=== PATIENT | male | born 2000 | race African-American/Black ===

== ENCOUNTER 2020-01-26 16:35 | Emergency (ER) | payer OTHER | END 2020-01-26 17:30 | disposition home or self-care (01) | LOC: ERS 16:35 | DX: M26.622 Arthralgia of left temporomandibular joint (principal); E10.9 Type 1 diabetes mellitus without complications | CPT/HCPCS: 99283 ==

== ENCOUNTER 2023-01-26 22:59 | Inpatient (IN) | payer OTHER ==
[2023-01-27 01:54] LABS: Actual Bicarbonate (HCO3v) 26.6 mEq/L (22-28); Base Excess -1.1 mEq/L (-2.0 to +3.0); Calcium, Ionized (venous) 1.21 mmol/L (1.16-1.32); Chloride (VBG) 100 mmol/L (98-106); Hematocrit-VBG 50 % (42.0-52.0); pH (venous) 7.301 (7.32-7.43)
[2023-01-27 01:59] LABS: #Eosinphils 0.1 thou/uL (0.0-0.7); #Monocytes 0.6 thou/uL (0.11-0.59); #Neutrophils 2.4 thou/uL (1.40-6.50); %Basophils 0.6 % (0.0-1.0); %Eosinophils 1.1 % (0.0-10.0); %Lymphocytes 50.6 % (21.0-51.0); %Monocytes 8.8 % (0.0-10.0); %Neutrophils 38.6 % (42.0-75.0); Hematocrit 47.1 % (42.0-52.0); Hemoglobin 16.2 g/dL (14.0-18.0); Mean Corpuscular HGB CONC 34.4 g/dL (32.0-36.0); Mean Corpuscular Hemoglobin 25.2 pg (27.0-31.0); Mean Corpuscular Volume 73.1 fl (78.0-98.0); Mean Platelet Volume 8.7 fL (7.4-10.4); Platelet Count 277 10x3/uL (130-400); RBC Distribution Width 12.6 % (11.5-14.5); Red Blood Cell (RBC) Count 6.44 mill/uL (4.70-6.10); White Blood Cell (WBC) Count 6.3 10x3/uL (4.8-10.8)
[2023-01-27 02:23] LABS: CellaVision Operator ID lab.abc; Platelet Adequacy Comment Platelets Normal; Vacuoles SLIGHT
[2023-01-27 02:28] LABS: ALT (SGPT) 13 U/L (8-55); AST (SGOT) 13 U/L (5-34); Albumin 4.3 g/dL (3.5-5.0); Alkaline Phosphatase 111 U/L (40-110); Anion Gap 11 mmol/L (10-20); BUN (Urea Nitrogen) 8 mg/dL (8.9-20.6); Bilirubin, Total 0.4 mg/dL (0.2-1.2); CK (CPK) 35 U/L (30-200); Calc. Creatinine Clearance 0 mL/min (70-130); Calcium 9.6 mg/dL (7.8-10.44); Carbon Dioxide 29 mmol/L (22-29); Chloride 101 mmol/L (98-107); Estimated GFR 119; Globulin 3.2 g/dL (2.4-3.5); Glucose 200 mg/dL (70-105); Potassium 3.4 mmol/L (3.5-5.1); Protein, Total 7.5 g/dL (6.0-8.3); Sodium 138 mmol/L (136-145)
[2023-01-27] MEDS ORDERED: Ketorolac Tromethamine 30 MG/ML VIAL ONE (03:06)
[2023-01-27] MEDS ORDERED: diphenhydrAMINE 50 MG/ML VIAL ONE (04:12)
[2023-01-27] MEDS ORDERED: Dexameth. Sod Phosp. 10 MG/ML (CHEMO USE ONLY) ONE (04:12)
[2023-01-27] MEDS ORDERED: Ondansetron ODT 4 MG TAB PO PRN (08:54)
[2023-01-27] MEDS ORDERED: Dextrose 5% in Water 1,000 ML IV PRN (08:54)
[2023-01-27] MEDS ORDERED: Acetaminophen 650 MG Suppository PR PRN (08:54)
[2023-01-27] MEDS ORDERED: Ondansetron PF 4 MG/2 ML Vial IVP PRN (08:54)
[2023-01-27] MEDS ORDERED: HumaLOG 300 UNITS/3 ML VIAL SC PRN (08:54)
[2023-01-27] MEDS ORDERED: Glucagon 1 MG/ML KIT IM PRN (08:54)
[2023-01-27] MEDS ORDERED: Calcium Carbonate 500 MG ChewTAB PO PRN (08:54)
[2023-01-27] MEDS ORDERED: Acetaminophen 325 MG TAB PO PRN (08:54)
[2023-01-27] MEDS ORDERED: Dextrose 50% Abboject 50 ML SYRINGE SLOW IVP PRN (08:54)
[2023-01-27] MEDS ORDERED: Gabapentin 300 MG CAP PO PRN (09:14)
[2023-01-27] MEDS ORDERED: Gabapentin 300 MG CAP PO SCH (09:15)
[2023-01-27 09:31] LABS: Hemoglobin A1c 10.8 % (4.0-6.0)
[2023-01-27 10:13] VITALS: BMI 22.4
[2023-01-27] MEDS: Lactated Ringer's 1,000 ML IV SCH ×2 (10:46→20:45)
[2023-01-27 11:15] LABS: Amphetamine Not Detected (NotDetected); Barbiturates Screen Not Detected (NotDetected); Benzodiazepine Screen Not Detected (NotDetected); Cocaine Metabolite Screen Not Detected (NotDetected); Methadone Not Detected (NotDetected); Methamphetamine Not Detected (NotDetected); Opiate Screen Not Detected (NotDetected); Oxycodone Screen Not Detected (NotDetected); Phencyclidine (PCP) Not Detected (NotDetected); THC/Cannabinoid Screen Detected (NotDetected); Tricyclic Screen Not Detected (NotDetected)
[2023-01-27] MEDS: Acetaminophen 325 MG TAB PO SCH ×2 (11:48→19:25)
[2023-01-27] MEDS: HumaLOG 300 UNITS/3 ML VIAL SC PRN (13:59)
[2023-01-27] MEDS: Melatonin 3 MG TAB PO SCH (20:41)
[2023-01-27] MEDS ORDERED: Insulin Glargine 30 UNITS/0.3 ML VIAL SC SCH ×2 (21:00)
[2023-01-28] MEDS: Acetaminophen 325 MG TAB PO SCH ×5 (00:10→23:55)
[2023-01-28] MEDS ORDERED: Gabapentin 300 MG CAP PO SCH (00:15)
[2023-01-28] MEDS ORDERED: diphenhydrAMINE 25 MG CAP PO SCH (01:06)
[2023-01-28] MEDS ORDERED: hydrALAZINE 20 MG/ML VIAL SLOW IVP SCH (03:15)
[2023-01-28 04:48] LABS: #Eosinphils 0.1 thou/uL (0.0-0.7); #Monocytes 0.7 thou/uL (0.11-0.59); #Neutrophils 4.1 thou/uL (1.40-6.50); %Basophils 0.3 % (0.0-1.0); %Eosinophils 0.5 % (0.0-10.0); %Lymphocytes 46.8 % (21.0-51.0); %Monocytes 7.7 % (0.0-10.0); %Neutrophils 44.6 % (42.0-75.0); Hematocrit 41.7 % (42.0-52.0); Hemoglobin 14.1 g/dL (14.0-18.0); Mean Corpuscular HGB CONC 33.8 g/dL (32.0-36.0); Mean Corpuscular Hemoglobin 24.9 pg (27.0-31.0); Mean Corpuscular Volume 73.7 fl (78.0-98.0); Mean Platelet Volume 8.7 fL (7.4-10.4); Platelet Count 235 10x3/uL (130-400); RBC Distribution Width 12.4 % (11.5-14.5); Red Blood Cell (RBC) Count 5.66 mill/uL (4.70-6.10); White Blood Cell (WBC) Count 9.1 10x3/uL (4.8-10.8)
[2023-01-28 05:10] LABS: Delete Auto Diff?? NO
[2023-01-28 05:55] LABS: Platelet Adequacy Comment Platelets Normal
[2023-01-28 07:35] LABS: Chloride 105 mmol/L (98-107); Potassium 3.2 mmol/L (3.5-5.1); Sodium 138 mmol/L (136-145)
[2023-01-28 07:36] LABS: Glucose 185 mg/dL (70-105)
[2023-01-28 07:38] LABS: Anion Gap 11 mmol/L (10-20); Carbon Dioxide 25 mmol/L (22-29)
[2023-01-28 07:39] LABS: Calc. Creatinine Clearance 136 mL/min (70-130); Estimated GFR 125
[2023-01-28 07:40] LABS: BUN (Urea Nitrogen) 8 mg/dL (8.9-20.6)
[2023-01-28] MEDS: Gabapentin 300 MG CAP PO SCH ×3 (08:38→21:35)
[2023-01-28] MEDS: Polyethylene Glycol 3350 17 GM Packet PO SCH (08:39)
[2023-01-28] MEDS ORDERED: Potassium Chloride 20 MEQ TAB PO SCH (08:45)
[2023-01-28 08:50] LABS: Burr Cells SLIGHT = 2-5 cells HPF (0-1); CellaVision Operator ID LAB.GE; Microcytosis SLIGHT = 6-15 cells HPF (0-5); Polychromasia SLIGHT = 2-3 cells HPF (0-2)
[2023-01-28] MEDS ORDERED: Insulin Glargine 30 UNITS/0.3 ML VIAL SC SCH ×2 (09:00→10:00)
[2023-01-28] MEDS ORDERED: Losartan 25 MG TAB PO SCH (10:00)
[2023-01-28 16:26] LABS: SARS-CoV-2 NAA Rapid Test Not Detected (NotDetected)
[2023-01-28] MEDS ORDERED: Metoprolol Tartrate 25 MG TAB PO SCH (16:30)
[2023-01-28 17:12] LABS: Troponin I Less than 0.010 ng/mL (< 0.028)
[2023-01-28] MEDS: HumaLOG 300 UNITS/3 ML VIAL SC PRN (17:57)
[2023-01-28 19:04] LABS: Anion Gap 11 mmol/L (10-20); BUN (Urea Nitrogen) 7 mg/dL (8.9-20.6); Calc. Creatinine Clearance 120 mL/min (70-130); Calcium 9.2 mg/dL (7.8-10.44); Carbon Dioxide 27 mmol/L (22-29); Chloride 103 mmol/L (98-107); Estimated GFR 115; Glucose 202 mg/dL (70-105); Potassium 4.4 mmol/L (3.5-5.1); Sodium 137 mmol/L (136-145)
[2023-01-28] MEDS: Melatonin 3 MG TAB PO SCH (21:31)
[2023-01-28] MEDS: Ibuprofen 600 MG TAB PO PRN (22:21)
[2023-01-29] MEDS ORDERED: Metoprolol Tartrate 25 MG TAB PO SCH ×2 (00:45→09:00)
[2023-01-29] MEDS ORDERED: Losartan 25 MG TAB PO SCH ×4 (04:00→09:00)
[2023-01-29] MEDS: Acetaminophen 325 MG TAB PO SCH ×2 (05:35→12:30)
[2023-01-29] MEDS: Ibuprofen 600 MG TAB PO PRN ×3 (05:37→21:14)
[2023-01-29] MEDS: Polyethylene Glycol 3350 17 GM Packet PO SCH (08:04)
[2023-01-29] MEDS: Gabapentin 300 MG CAP PO SCH ×3 (08:06→21:10)
[2023-01-29] MEDS ORDERED: Insulin Glargine 30 UNITS/0.3 ML VIAL SC SCH (09:00)
[2023-01-29 09:29] LABS: Anion Gap 11 mmol/L (10-20); BUN (Urea Nitrogen) 7 mg/dL (8.9-20.6); Calc. Creatinine Clearance 139 mL/min (70-130); Calcium 9.5 mg/dL (7.8-10.44); Carbon Dioxide 29 mmol/L (22-29); Chloride 101 mmol/L (98-107); Estimated GFR 126; Glucose 108 mg/dL (70-105); Potassium 3.9 mmol/L (3.5-5.1); Sodium 137 mmol/L (136-145)
[2023-01-29] MEDS: Metoprolol Tartrate 25 MG TAB PO SCH (21:10)
[2023-01-29] MEDS: Acetaminophen 500 MG TAB PO SCH (21:14)
[2023-01-29] MEDS: Melatonin 3 MG TAB PO SCH (21:15)
[2023-01-30] MEDS: Acetaminophen 500 MG TAB PO SCH ×5 (05:26→23:51)
[2023-01-30 08:50] LABS: Anion Gap 12 mmol/L (10-20); BUN (Urea Nitrogen) 9 mg/dL (8.9-20.6); Calc. Creatinine Clearance 130 mL/min (70-130); Calcium 9.9 mg/dL (7.8-10.44); Carbon Dioxide 29 mmol/L (22-29); Chloride 102 mmol/L (98-107); Estimated GFR 123; Glucose 87 mg/dL (70-105); Potassium 3.7 mmol/L (3.5-5.1); Sodium 139 mmol/L (136-145)
[2023-01-30] MEDS: Gabapentin 300 MG CAP PO SCH ×3 (09:11→21:24)
[2023-01-30] MEDS: Insulin Glargine 30 UNITS/0.3 ML VIAL SC SCH (09:12)
[2023-01-30] MEDS: Polyethylene Glycol 3350 17 GM Packet PO SCH (09:13)
[2023-01-30] MEDS: Metoprolol Tartrate 25 MG TAB PO SCH ×2 (09:13→21:25)
[2023-01-30] MEDS: Losartan 25 MG TAB PO SCH (09:13)
[2023-01-30] MEDS: HumaLOG 300 UNITS/3 ML VIAL SC PRN (17:37)
[2023-01-30] MEDS: Ibuprofen 600 MG TAB PO SCH ×2 (17:38→23:51)
[2023-01-30] MEDS ORDERED: DULoxetine 30 MG CAP PO SCH (17:45)
[2023-01-30] MEDS: diphenhydrAMINE 25 MG CAP PO PRN (18:05)
[2023-01-30] MEDS: Melatonin 3 MG TAB PO SCH (21:25)
[2023-01-31] MEDS ORDERED: Metoprolol Tartrate 25 MG TAB PO SCH (00:48)
[2023-01-31] MEDS: diphenhydrAMINE 25 MG CAP PO PRN (01:39)
[2023-01-31] MEDS: Ibuprofen 600 MG TAB PO SCH ×2 (05:57→14:03)
[2023-01-31] MEDS: Acetaminophen 500 MG TAB PO SCH ×2 (05:58→14:02)
[2023-01-31] MEDS ORDERED: Metoprolol Tartrate 50 MG TAB PO SCH (09:00)
[2023-01-31] MEDS ORDERED: DULoxetine 30 MG CAP PO SCH (09:00)
[2023-01-31] MEDS: Polyethylene Glycol 3350 17 GM Packet PO SCH (09:02)
[2023-01-31] MEDS: Insulin Glargine 30 UNITS/0.3 ML VIAL SC SCH (09:02)
[2023-01-31] MEDS: Gabapentin 300 MG CAP PO SCH ×2 (09:02→15:49)
[2023-01-31] MEDS: Losartan 25 MG TAB PO SCH (09:03)
[2023-01-31 16:52] VITALS: BP 130/91; TEMP 98.4
== END 2023-01-31 16:50 | disposition home or self-care (01) | DRG 74 ==
LOC: ERS 22:59 → 2SW 01-27 07:47 → OBSVTOIN 01-28 16:55
PROVIDERS: ADMIT Student in an Organized Health Care Education/Training Program; ATTEND Student in an Organized Health Care Education/Training Program
DX: E10.40 Type 1 diabetes mellitus with diabetic neuropathy, unspecified (principal); K59.00 Constipation, unspecified; R00.0 Tachycardia, unspecified; E87.6 Hypokalemia; I10 Essential (primary) hypertension; Z79.899 Other long term (current) drug therapy; Z79.4 Long term (current) use of insulin; Z82.49 Family history of ischemic heart disease and other diseases of the circulatory system
CPT/HCPCS: 36415; 36416; 74178; 80048; 80053; 80306; 80307; 82010; 82550; 82607; 82805; 83036; 83605; 83835; 84443; 84484; 85025; 86038; 86140; 86225; 93005; 93010; 93306; 96361; 96374; 96375; G0378; J1100; J1200; J1815; J1885; J7120

== ENCOUNTER 2023-07-20 22:58 | Emergency (ER) | payer OTHER ==
[2023-07-20] MEDS ORDERED: Haloperidol Lactate 5 MG/ML VIAL ONE (23:19)
[2023-07-20] MEDS ORDERED: Lidocaine 2% Viscous 10 mL, Alum & Magn 30 mL SSW SCH (23:45)
== END 2023-07-21 00:16 | disposition home or self-care (01) ==
LOC: ERS 22:58
DX: R11.2 Nausea with vomiting, unspecified (principal); E10.9 Type 1 diabetes mellitus without complications; D36.9 Benign neoplasm, unspecified site
CPT/HCPCS: 36416; 96361; 96374; J1630

== ENCOUNTER 2023-07-22 22:41 | Inpatient (IN) | payer OTHER, MEDICAID ==
[2023-07-22 23:07] LABS: Actual Bicarbonate (HCO3v) 26.5 mEq/L (22-28); Base Excess 2.1 mEq/L (-2.0 to +3.0); Calcium, Ionized (venous) 1.12 mmol/L (1.16-1.32); Chloride (VBG) 95 mmol/L (98-106); Hematocrit-VBG 52 % (42.0-52.0); Hemoglobin (Hb) 17.8 g/dL (13.2-17.3); Potassium (VBG) 3.53 mmol/L (3.70-5.30); Sodium 141 mmol/L (133-146); pH (venous) 7.433 (7.32-7.43)
[2023-07-22] MEDS ORDERED: Ondansetron PF 4 MG/2 ML Vial ONE (23:11)
[2023-07-22 23:22] LABS: #Monocytes 0.5 thou/uL (0.11-0.59); #Neutrophils 4.5 thou/uL (1.40-6.50); %Basophils 0.4 % (0.0-1.0); %Eosinophils 0.3 % (0.0-10.0); %Lymphocytes 25.4 % (21.0-51.0); %Monocytes 6.7 % (0.0-10.0); %Neutrophils 67.1 % (42.0-75.0); Hematocrit 49.4 % (42.0-52.0); Hemoglobin 17.3 g/dL (14.0-18.0); Mean Corpuscular Hemoglobin 25.3 pg (27.0-31.0); Mean Corpuscular Volume 72.2 fl (78.0-98.0); Mean Platelet Volume 9.5 fL (7.4-10.4); Platelet Count 248 10x3/uL (130-400); RBC Distribution Width 12.4 % (11.5-14.5); Red Blood Cell (RBC) Count 6.84 mill/uL (4.70-6.10); White Blood Cell (WBC) Count 6.7 10x3/uL (4.8-10.8)
[2023-07-22 23:42] LABS: ALT (SGPT) 21 U/L (8-55); AST (SGOT) 22 U/L (5-34); Albumin 4.8 g/dL (3.5-5.0); Alkaline Phosphatase 134 U/L (40-110); Anion Gap 21 mmol/L (10-20); BUN (Urea Nitrogen) 17 mg/dL (8.9-20.6); Bilirubin, Total 1.5 mg/dL (0.2-1.2); Calc. Creatinine Clearance 0 mL/min (70-130); Calcium 9.8 mg/dL (7.8-10.44); Carbon Dioxide 26 mmol/L (22-29); Chloride 96 mmol/L (98-107); Estimated GFR 75; Globulin 3.3 g/dL (2.4-3.5); Glucose 263 mg/dL (70-105); Lipase 18 U/L (8-78); Potassium 3.6 mmol/L (3.5-5.1); Protein, Total 8.1 g/dL (6.0-8.3); Sodium 139 mmol/L (136-145)
[2023-07-22 23:45] LABS: CellaVision Operator ID lab.sh2; Microcytosis SLIGHT = 6-15 cells HPF (0-5); Platelet Adequacy Comment Platelets Normal; Tear Drops SLIGHT = 2-5 cells HPF (0-1)
[2023-07-23 00:23] LABS: Influenza A by NAA Not Detected (NotDetected); Influenza B by NAA Not Detected (NotDetected); SARS-CoV-2 NAA Rapid Test Not Detected (NotDetected)
[2023-07-23 01:34] LABS: Bacteria/HPF None Seen HPF (None Seen); Bilirubin Negative (Negative); Blood, Urine Negative (Negative); CAUTI Indications for Culture Pelvic or flank pain; Clarity Clear (Clear); Glucose, Urine (Dipstick) Greater than 1000 mg/dL (Negative); Ketone, Urine 100 mg/dL (Negative); Leukocyte Negative Leu/uL (Negative); Nitrite Negative (Negative); Protein, Urine (Dipstick) Negative (Neg-Trace); RBC/HPF 0-3 HPF (0-3); Specific Gravity, Urine 1.014 (1.002-1.036); Squamous Epithelial None Seen HPF (0-3); Urobilinogen Normal mg/dL (Less than 2); WBC/HPF 0-3 HPF (0-3); pH, Urine 6.5 (5.0-9.0)
[2023-07-23 01:35] LABS: Urine Culture Reflex No No
[2023-07-23] MEDS ORDERED: Ondansetron PF 4 MG/2 ML Vial IVP PRN ×2 (02:15→03:20)
[2023-07-23] MEDS ORDERED: Ondansetron ODT 4 MG TAB SL PRN (02:15)
[2023-07-23 02:21] LABS: Lactic Acid 1.4 mmol/L (0.5-2.2)
[2023-07-23 02:54] LABS: Actual Bicarbonate (HCO3a) 21.1 mEq/L (22-28); Analyzer IN Cardio ER; Base Excess (BEa) -3.5 mEq/L (-2.0 to +3.0); Calcium, Ionized (arterial) 1.08 mmol/L (1.12-1.30); Carboxyhemoglobin (COHb) 0.7 gm% (0.0-3.0); Hematocrit-ABG 47 % (42.0-52.0); Hemoglobin (Hb) 16.1 g/dL (14.0-18.0); O2 Tension (PaO2), arterial 86.6 mmHg (80.0-100.0); Potassium - ABG Lab 3.81 mmol/L (3.70-5.30); pH, Arterial 7.373 (7.35-7.45)
[2023-07-23 02:58] LABS: Puncture Site RRA
[2023-07-23] MEDS ORDERED: Electrolyte Replacement Protocol 1 EACH IVPB PRN (03:11)
[2023-07-23] MEDS ORDERED: Dextrose 5 %-0.45 % NaCl 1,000 ML IV PRN (03:11)
[2023-07-23] MEDS ORDERED: NS 0.9% w/ 20 MEQ KCL 1,000 ML IV PRN ×2 (03:11)
[2023-07-23] MEDS ORDERED: Sodium Chloride 0.9% 1,000 ML IV PRN ×4 (03:11)
[2023-07-23] MEDS ORDERED: Dextrose 50% Abboject 50 ML SYRINGE SLOW IVP PRN (03:11)
[2023-07-23] MEDS ORDERED: Labetalol HCl 100 MG/20 ML VIAL SLOW IVP PRN (03:14)
[2023-07-23] MEDS ORDERED: HUMULIN R 100 UNITS in Sodium Chloride 0.9% 100 ML IVPB SCH (03:15)
[2023-07-23] MEDS ORDERED: Insulin Regular 300 UNITS/3 ML VIAL ONE (03:56)
[2023-07-23] MEDS ORDERED: INSULIN REGULAR IN 0.9 % NACL 100 UNITS/100 ML BAG ONE (03:56)
[2023-07-23] MEDS ORDERED: NS 0.9% w/ 20 MEQ KCL 1,000 ML ONE (03:59)
[2023-07-23 04:01] LABS: Anion Gap 21 mmol/L (10-20); BUN (Urea Nitrogen) 14 mg/dL (8.9-20.6); Calc. Creatinine Clearance 0 mL/min (70-130); Calcium 8.2 mg/dL (7.8-10.44); Carbon Dioxide 19 mmol/L (22-29); Chloride 105 mmol/L (98-107); Estimated GFR 96; Glucose 238 mg/dL (70-105); Potassium 3.8 mmol/L (3.5-5.1); Sodium 141 mmol/L (136-145)
[2023-07-23 04:02] LABS: #Monocytes 0.4 thou/uL (0.11-0.59); #Neutrophils 9.6 thou/uL (1.40-6.50); %Basophils 0.2 % (0.0-1.0); %Lymphocytes 7.9 % (21.0-51.0); %Monocytes 3.7 % (0.0-10.0); %Neutrophils 87.9 % (42.0-75.0); Hematocrit 47.5 % (42.0-52.0); Hemoglobin 16.2 g/dL (14.0-18.0); Mean Corpuscular HGB CONC 34.1 g/dL (32.0-36.0); Mean Corpuscular Volume 73.4 fl (78.0-98.0); Mean Platelet Volume 9.2 fL (7.4-10.4); Platelet Count 235 10x3/uL (130-400); RBC Distribution Width 12.2 % (11.5-14.5); Red Blood Cell (RBC) Count 6.47 mill/uL (4.70-6.10); White Blood Cell (WBC) Count 10.9 10x3/uL (4.8-10.8)
[2023-07-23 04:16] LABS: Anion Gap 18 mmol/L (10-20); BUN (Urea Nitrogen) 14 mg/dL (8.9-20.6); Calc. Creatinine Clearance 0 mL/min (70-130); Calcium 8.7 mg/dL (7.8-10.44); Carbon Dioxide 21 mmol/L (22-29); Chloride 104 mmol/L (98-107); Estimated GFR 108; Glucose 234 mg/dL (70-105); Sodium 139 mmol/L (136-145)
[2023-07-23] MEDS: Losartan 25 MG TAB PO SCH ×2 (05:10→09:15)
[2023-07-23] MEDS: D5 1/2 NS w/20 mEq KCL 1,000 ML IV PRN (05:10)
[2023-07-23] MEDS: Sodium Chloride 0.9% 1,000 ML IV SCH (05:11)
[2023-07-23 05:19] LABS: Magnesium 1.9 mg/dL (1.6-2.6)
[2023-07-23] MEDS: Ondansetron PF 4 MG/2 ML Vial IVP SCH (06:13)
[2023-07-23 07:30] LABS: Anion Gap 17 mmol/L (10-20); BUN (Urea Nitrogen) 12 mg/dL (8.9-20.6); Calc. Creatinine Clearance 124 mL/min (70-130); Calcium 8.5 mg/dL (7.8-10.44); Carbon Dioxide 22 mmol/L (22-29); Chloride 107 mmol/L (98-107); Estimated GFR 102; Glucose 167 mg/dL (70-105); Potassium 3.7 mmol/L (3.5-5.1); Sodium 142 mmol/L (136-145)
[2023-07-23 07:30] LABS: Acetaminophen Less than 10 mcg/mL (10.0-30.0); Alcohol Less than 10.0 mg/dL (Less than 10); Salicylate Less than 8.0 mg/dL (15.0-30.0)
[2023-07-23 07:31] LABS: ALT (SGPT) 19 U/L (8-55); AST (SGOT) 20 U/L (5-34); Albumin 4.2 g/dL (3.5-5.0); Alkaline Phosphatase 118 U/L (40-110); Bilirubin, Direct 0.4 mg/dL (0.1-0.3); Bilirubin, Total 0.9 mg/dL (0.2-1.2); Protein, Total 7.4 g/dL (6.0-8.3)
[2023-07-23 07:54] LABS: Amphetamine Not Detected (NotDetected); Barbiturates Screen Not Detected (NotDetected); Benzodiazepine Screen Not Detected (NotDetected); Cocaine Metabolite Screen Not Detected (NotDetected); Methadone Not Detected (NotDetected); Methamphetamine Not Detected (NotDetected); Opiate Screen Not Detected (NotDetected); Oxycodone Screen Not Detected (NotDetected); Phencyclidine (PCP) Not Detected (NotDetected); THC/Cannabinoid Screen Detected (NotDetected); Tricyclic Screen Not Detected (NotDetected)
[2023-07-23] MEDS: Gabapentin 300 MG CAP PO SCH (09:15)
[2023-07-23] MEDS: Magnesium 2 GM/50 ML(in water) 2 GM in Premix 1 BAG IVPB SCH (09:26)
[2023-07-23 11:41] LABS: ALT (SGPT) 18 U/L (8-55); AST (SGOT) 18 U/L (5-34); Albumin 4.2 g/dL (3.5-5.0); Alkaline Phosphatase 110 U/L (40-110); Bilirubin, Direct 0.4 mg/dL (0.1-0.3); Bilirubin, Total 0.7 mg/dL (0.2-1.2); Protein, Total 7.4 g/dL (6.0-8.3)
[2023-07-23 11:42] LABS: Anion Gap 17 mmol/L (10-20); BUN (Urea Nitrogen) 9 mg/dL (8.9-20.6); Calc. Creatinine Clearance 127 mL/min (70-130); Calcium 8.7 mg/dL (7.8-10.44); Carbon Dioxide 23 mmol/L (22-29); Chloride 106 mmol/L (98-107); Estimated GFR 104; Glucose 189 mg/dL (70-105); Potassium 4.3 mmol/L (3.5-5.1); Sodium 142 mmol/L (136-145)
[2023-07-23 11:43] LABS: Magnesium 2.9 mg/dL (1.6-2.6)
[2023-07-23] MEDS: Promethazine 25 MG TAB PO SCH (13:42)
[2023-07-23 17:21] LABS: Anion Gap 15 mmol/L (10-20); BUN (Urea Nitrogen) 8 mg/dL (8.9-20.6); Calc. Creatinine Clearance 118 mL/min (70-130); Calcium 8.8 mg/dL (7.8-10.44); Carbon Dioxide 21 mmol/L (22-29); Chloride 106 mmol/L (98-107); Estimated GFR 95; Glucose 256 mg/dL (70-105); Magnesium 2.3 mg/dL (1.6-2.6); Sodium 138 mmol/L (136-145)
[2023-07-23] MEDS: Pantoprazole 40 MG VIAL IVP SCH (17:49)
[2023-07-24 06:09] LABS: #Monocytes 1.1 thou/uL (0.11-0.59); #Neutrophils 7.5 thou/uL (1.40-6.50); %Basophils 0.2 % (0.0-1.0); %Eosinophils 0.2 % (0.0-10.0); %Lymphocytes 15.7 % (21.0-51.0); %Monocytes 10.5 % (0.0-10.0); %Neutrophils 72.9 % (42.0-75.0); Hematocrit 45.4 % (42.0-52.0); Hemoglobin 15.6 g/dL (14.0-18.0); Mean Corpuscular HGB CONC 34.4 g/dL (32.0-36.0); Mean Corpuscular Hemoglobin 25.2 pg (27.0-31.0); Mean Corpuscular Volume 73.5 fl (78.0-98.0); Mean Platelet Volume 9.6 fL (7.4-10.4); Platelet Count 220 10x3/uL (130-400); RBC Distribution Width 12.3 % (11.5-14.5); Red Blood Cell (RBC) Count 6.18 mill/uL (4.70-6.10); White Blood Cell (WBC) Count 10.3 10x3/uL (4.8-10.8)
[2023-07-24 06:46] LABS: Anion Gap 12 mmol/L (10-20); BUN (Urea Nitrogen) 4 mg/dL (8.9-20.6); Calc. Creatinine Clearance 155 mL/min (70-130); Calcium 8.9 mg/dL (7.8-10.44); Carbon Dioxide 23 mmol/L (22-29); Chloride 104 mmol/L (98-107); Estimated GFR 123; Glucose 195 mg/dL (70-105); Potassium 3.9 mmol/L (3.5-5.1); Sodium 135 mmol/L (136-145)
[2023-07-24] MEDS ORDERED: Losartan 25 MG TAB PO SCH (09:00)
[2023-07-24] MEDS: Insulin Glargine 30 UNITS/0.3 ML VIAL SC SCH ×2 (09:48→21:57)
[2023-07-24 17:41] LABS: Anion Gap 11 mmol/L (10-20); BUN (Urea Nitrogen) Less than 4 mg/dL (8.9-20.6); Calc. Creatinine Clearance 148 mL/min (70-130); Calcium 9.3 mg/dL (7.8-10.44); Carbon Dioxide 23 mmol/L (22-29); Chloride 103 mmol/L (98-107); Estimated GFR 119; Glucose 213 mg/dL (70-105); Potassium 4.4 mmol/L (3.5-5.1); Sodium 133 mmol/L (136-145)
[2023-07-24] MEDS: Ondansetron PF 4 MG/2 ML Vial ONE (19:05)
[2023-07-24] MEDS: Lorazepam 2 MG/ML VIAL SLOW IVP PRN (22:33)
[2023-07-24] MEDS ORDERED: Glucagon 1 MG/ML KIT IM PRN (23:03)
[2023-07-24] MEDS ORDERED: Dextrose 50% Abboject 50 ML SYRINGE SLOW IVP PRN (23:03)
[2023-07-24] MEDS ORDERED: HumaLOG 300 UNITS/3 ML VIAL SC PRN ×2 (23:03)
[2023-07-24] MEDS ORDERED: Dextrose 5% in Water 1,000 ML IV PRN (23:03)
[2023-07-25 01:10] LABS: Anion Gap 15 mmol/L (10-20); BUN (Urea Nitrogen) 5 mg/dL (8.9-20.6); Calc. Creatinine Clearance 126 mL/min (70-130); Calcium 9.1 mg/dL (7.8-10.44); Carbon Dioxide 19 mmol/L (22-29); Chloride 103 mmol/L (98-107); Estimated GFR 98; Glucose 227 mg/dL (70-105); Potassium 4.4 mmol/L (3.5-5.1); Sodium 133 mmol/L (136-145)
[2023-07-25 04:46] LABS: #Eosinphils 0.1 thou/uL (0.0-0.7); #Monocytes 0.9 thou/uL (0.11-0.59); #Neutrophils 5.8 thou/uL (1.40-6.50); %Basophils 0.3 % (0.0-1.0); %Eosinophils 0.5 % (0.0-10.0); %Lymphocytes 29.4 % (21.0-51.0); %Monocytes 9.6 % (0.0-10.0); %Neutrophils 60.1 % (42.0-75.0); Hemoglobin 15.7 g/dL (14.0-18.0); Mean Corpuscular HGB CONC 34.9 g/dL (32.0-36.0); Mean Corpuscular Hemoglobin 25.4 pg (27.0-31.0); Mean Corpuscular Volume 72.9 fl (78.0-98.0); Mean Platelet Volume 8.8 fL (7.4-10.4); Platelet Count 223 10x3/uL (130-400); RBC Distribution Width 12.1 % (11.5-14.5); Red Blood Cell (RBC) Count 6.17 mill/uL (4.70-6.10); White Blood Cell (WBC) Count 9.6 10x3/uL (4.8-10.8)
[2023-07-25 05:20] LABS: CellaVision Operator ID lab.sh2; Microcytosis SLIGHT = 6-15 cells HPF (0-5); Platelet Adequacy Comment Platelets Normal
[2023-07-25 05:28] LABS: Anion Gap 13 mmol/L (10-20); BUN (Urea Nitrogen) 7 mg/dL (8.9-20.6); Calc. Creatinine Clearance 142 mL/min (70-130); Calcium 9.2 mg/dL (7.8-10.44); Carbon Dioxide 22 mmol/L (22-29); Chloride 104 mmol/L (98-107); Estimated GFR 113; Glucose 209 mg/dL (70-105); Potassium 4.1 mmol/L (3.5-5.1); Sodium 135 mmol/L (136-145)
[2023-07-25] MEDS ORDERED: Ondansetron PF 4 MG/2 ML Vial IVP PRN (08:04)
[2023-07-25] MEDS: Lactated Ringer's 1,000 ML IV SCH (09:09)
[2023-07-25] MEDS: HumaLOG 300 UNITS/3 ML VIAL SC PRN (09:12)
[2023-07-25] MEDS: Lactated Ringer's 500 ML IV SCH ×2 (09:42)
[2023-07-25] MEDS ORDERED: Ondansetron PF 4 MG/2 ML Vial IVP SCH (12:00)
[2023-07-25] MEDS: Meclizine HCl 12.5 MG TAB PO PRN (12:23)
[2023-07-25 12:35] LABS: Bacteria/HPF None Seen HPF (None Seen); Bilirubin Negative (Negative); Blood, Urine Negative (Negative); CAUTI Indications for Culture Dysuria,urgency,freq; Clarity Clear (Clear); Glucose, Urine (Dipstick) Greater than 1000 mg/dL (Negative); Ketone, Urine 40 mg/dL (Negative); Leukocyte Negative Leu/uL (Negative); Nitrite Negative (Negative); Protein, Urine (Dipstick) Negative (Neg-Trace); RBC/HPF 0-3 HPF (0-3); Specific Gravity, Urine 1.013 (1.002-1.036); Squamous Epithelial None Seen HPF (0-3); Urobilinogen Normal mg/dL (Less than 2); WBC/HPF 0-3 HPF (0-3); pH, Urine 6.5 (5.0-9.0)
[2023-07-25 12:38] LABS: Urine Culture Reflex No No
[2023-07-25 18:29] LABS: Anion Gap 15 mmol/L (10-20); BUN (Urea Nitrogen) 8 mg/dL (8.9-20.6); Calc. Creatinine Clearance 155 mL/min (70-130); Calcium 9.9 mg/dL (7.8-10.44); Carbon Dioxide 19 mmol/L (22-29); Chloride 106 mmol/L (98-107); Estimated GFR 123; Glucose 136 mg/dL (70-105); Potassium 3.8 mmol/L (3.5-5.1); Sodium 136 mmol/L (136-145)
[2023-07-25] MEDS: Metoclopramide HCl 10 MG (2 mL) VIAL IVP PRN (19:39)
[2023-07-26 05:21] LABS: #Monocytes 0.6 thou/uL (0.11-0.59); #Neutrophils 3.9 thou/uL (1.40-6.50); %Basophils 0.5 % (0.0-1.0); %Eosinophils 0.3 % (0.0-10.0); %Lymphocytes 30.4 % (21.0-51.0); %Monocytes 8.8 % (0.0-10.0); %Neutrophils 59.8 % (42.0-75.0); Hematocrit 43.4 % (42.0-52.0); Hemoglobin 15.3 g/dL (14.0-18.0); Mean Corpuscular HGB CONC 35.3 g/dL (32.0-36.0); Mean Corpuscular Hemoglobin 25.5 pg (27.0-31.0); Mean Corpuscular Volume 72.5 fl (78.0-98.0); Mean Platelet Volume 9.1 fL (7.4-10.4); Platelet Count 229 10x3/uL (130-400); RBC Distribution Width 11.9 % (11.5-14.5); Red Blood Cell (RBC) Count 5.99 mill/uL (4.70-6.10); White Blood Cell (WBC) Count 6.5 10x3/uL (4.8-10.8)
[2023-07-26 05:36] LABS: Anion Gap 14 mmol/L (10-20); BUN (Urea Nitrogen) 7 mg/dL (8.9-20.6); Calc. Creatinine Clearance 160 mL/min (70-130); Calcium 8.6 mg/dL (7.8-10.44); Carbon Dioxide 23 mmol/L (22-29); Chloride 103 mmol/L (98-107); Estimated GFR 124; Glucose 131 mg/dL (70-105); Potassium 3.4 mmol/L (3.5-5.1); Sodium 137 mmol/L (136-145)
[2023-07-26] MEDS ORDERED: Gabapentin 300 MG CAP PO PRN (14:32)
[2023-07-26] MEDS ORDERED: Metoclopramide HCl 10 MG TAB PO SCH (15:00)
[2023-07-26] MEDS: Metoclopramide HCl 10 MG (2 mL) VIAL IVP SCH (21:00)
[2023-07-26] MEDS ORDERED: Insulin Glargine 30 UNITS/0.3 ML VIAL SC SCH (21:00)
[2023-07-27] MEDS: Ondansetron PF 4 MG/2 ML Vial IVP PRN (00:50)
[2023-07-27 05:09] LABS: #Monocytes 0.4 thou/uL (0.11-0.59); #Neutrophils 2.8 thou/uL (1.40-6.50); %Basophils 0.6 % (0.0-1.0); %Eosinophils 0.6 % (0.0-10.0); %Lymphocytes 45.6 % (21.0-51.0); %Monocytes 7.1 % (0.0-10.0); %Neutrophils 45.9 % (42.0-75.0); Hematocrit 41.6 % (42.0-52.0); Hemoglobin 14.7 g/dL (14.0-18.0); Mean Corpuscular HGB CONC 35.3 g/dL (32.0-36.0); Mean Corpuscular Hemoglobin 25.3 pg (27.0-31.0); Mean Corpuscular Volume 71.7 fl (78.0-98.0); Mean Platelet Volume 8.8 fL (7.4-10.4); Platelet Count 241 10x3/uL (130-400); RBC Distribution Width 12.1 % (11.5-14.5); White Blood Cell (WBC) Count 6.2 10x3/uL (4.8-10.8)
[2023-07-27 05:33] LABS: Anion Gap 13 mmol/L (10-20); BUN (Urea Nitrogen) 6 mg/dL (8.9-20.6); Calc. Creatinine Clearance 162 mL/min (70-130); Calcium 8.7 mg/dL (7.8-10.44); Carbon Dioxide 24 mmol/L (22-29); Chloride 105 mmol/L (98-107); Estimated GFR 125; Glucose 78 mg/dL (70-105); Potassium 3.2 mmol/L (3.5-5.1); Sodium 139 mmol/L (136-145)
[2023-07-27 05:41] LABS: CellaVision Operator ID lab.abc; Microcytosis SLIGHT = 6-15 cells HPF (0-5); Platelet Adequacy Comment Platelets Normal
[2023-07-27] MEDS: Potassium Chloride 20 MEQ in Premix 1 BAG IVPB SCH (06:48)
[2023-07-27] MEDS: Scopolamine 1 mg/72 hour Patch TD SCH (15:56)
[2023-07-28 06:40] LABS: #Eosinphils 0.1 thou/uL (0.0-0.7); #Monocytes 0.6 thou/uL (0.11-0.59); #Neutrophils 2.4 thou/uL (1.40-6.50); %Basophils 0.5 % (0.0-1.0); %Eosinophils 1.4 % (0.0-10.0); %Lymphocytes 51.9 % (21.0-51.0); %Monocytes 8.6 % (0.0-10.0); %Neutrophils 37.4 % (42.0-75.0); Hematocrit 39.4 % (42.0-52.0); Mean Corpuscular HGB CONC 35.5 g/dL (32.0-36.0); Mean Corpuscular Hemoglobin 25.2 pg (27.0-31.0); Mean Platelet Volume 8.9 fL (7.4-10.4); Platelet Count 243 10x3/uL (130-400); Red Blood Cell (RBC) Count 5.55 mill/uL (4.70-6.10); White Blood Cell (WBC) Count 6.4 10x3/uL (4.8-10.8)
[2023-07-28 07:14] LABS: Anion Gap 13 mmol/L (10-20); BUN (Urea Nitrogen) 8 mg/dL (8.9-20.6); Calc. Creatinine Clearance 140 mL/min (70-130); Calcium 8.5 mg/dL (7.8-10.44); Carbon Dioxide 24 mmol/L (22-29); Chloride 104 mmol/L (98-107); Estimated GFR 112; Glucose 99 mg/dL (70-105); Potassium 3.8 mmol/L (3.5-5.1); Sodium 137 mmol/L (136-145)
[2023-07-28] MEDS ORDERED: Doxylamine 25 MG TAB PO PRN (09:56)
[2023-07-28] MEDS: Losartan 25 MG TAB PO SCH (13:40)
[2023-07-29 04:28] LABS: #Eosinphils 0.1 thou/uL (0.0-0.7); #Monocytes 0.5 thou/uL (0.11-0.59); #Neutrophils 2.8 thou/uL (1.40-6.50); %Basophils 0.7 % (0.0-1.0); %Eosinophils 1.1 % (0.0-10.0); %Lymphocytes 38.2 % (21.0-51.0); %Monocytes 8.8 % (0.0-10.0); %Neutrophils 50.8 % (42.0-75.0); Hematocrit 39.5 % (42.0-52.0); Hemoglobin 13.8 g/dL (14.0-18.0); Mean Corpuscular HGB CONC 34.9 g/dL (32.0-36.0); Mean Corpuscular Hemoglobin 25.4 pg (27.0-31.0); Mean Corpuscular Volume 72.7 fl (78.0-98.0); Mean Platelet Volume 8.7 fL (7.4-10.4); Platelet Count 260 10x3/uL (130-400); Red Blood Cell (RBC) Count 5.43 mill/uL (4.70-6.10); White Blood Cell (WBC) Count 5.6 10x3/uL (4.8-10.8)
[2023-07-29 04:45] LABS: Anion Gap 17 mmol/L (10-20); BUN (Urea Nitrogen) 7 mg/dL (8.9-20.6); Calc. Creatinine Clearance 140 mL/min (70-130); Calcium 8.8 mg/dL (7.8-10.44); Carbon Dioxide 23 mmol/L (22-29); Chloride 102 mmol/L (98-107); Estimated GFR 112; Glucose 144 mg/dL (70-105); Potassium 3.7 mmol/L (3.5-5.1); Sodium 138 mmol/L (136-145)
[2023-07-29 05:08] LABS: CellaVision Operator ID lab.abc; Platelet Adequacy Comment Platelets Normal; RBC Morphology Within Normal Limits
[2023-07-29] MEDS: pyridOXINE 50 MG (B6) TAB PO SCH (08:35)
[2023-07-29] MEDS ORDERED: Doxylamine 25 MG TAB PO PRN (08:45)
[2023-07-29] MEDS ORDERED: Pantoprazole 40 MG VIAL IVP SCH (09:00)
[2023-07-29] MEDS: Capsaicin 0.025% Cream 60 gm Tube TOP SCH (14:34)
[2023-07-29] MEDS: Dronabinol 2.5 MG CAP PO SCH (20:22)
[2023-07-30 05:09] LABS: #Eosinphils 0.1 thou/uL (0.0-0.7); #Monocytes 0.6 thou/uL (0.11-0.59); #Neutrophils 2.1 thou/uL (1.40-6.50); %Basophils 0.5 % (0.0-1.0); %Eosinophils 1.8 % (0.0-10.0); %Lymphocytes 53.4 % (21.0-51.0); %Monocytes 9.2 % (0.0-10.0); %Neutrophils 34.9 % (42.0-75.0); Hematocrit 39.7 % (42.0-52.0); Mean Corpuscular HGB CONC 35.3 g/dL (32.0-36.0); Mean Corpuscular Hemoglobin 25.4 pg (27.0-31.0); Mean Corpuscular Volume 72.1 fl (78.0-98.0); Mean Platelet Volume 8.9 fL (7.4-10.4); Platelet Count 278 10x3/uL (130-400); Red Blood Cell (RBC) Count 5.51 mill/uL (4.70-6.10); White Blood Cell (WBC) Count 6.1 10x3/uL (4.8-10.8)
[2023-07-30 05:46] LABS: Anion Gap 14 mmol/L (10-20); BUN (Urea Nitrogen) 5 mg/dL (8.9-20.6); Calc. Creatinine Clearance 151 mL/min (70-130); Carbon Dioxide 24 mmol/L (22-29); Chloride 102 mmol/L (98-107); Estimated GFR 122; Glucose 154 mg/dL (70-105); Potassium 3.3 mmol/L (3.5-5.1); Sodium 137 mmol/L (136-145)
[2023-07-30 09:17] VITALS: BMI 26.7
[2023-07-30] MEDS ORDERED: PROPOFOL 20 ML ONE (10:57)
[2023-07-30] MEDS ORDERED: fentaNYL 50 mcg/mL 1 mL Vial ONE (11:04)
[2023-07-30] MEDS ORDERED: Promethazine HCl 25 MG/ML VIAL ONE (11:24)
[2023-07-30] MEDS: Scopolamine 1 mg/72 hour Patch TD SCH (15:35)
[2023-07-30] MEDS: HumaLOG 300 UNITS/3 ML VIAL SC PRN (21:10)
[2023-07-30] MEDS: Potassium Chloride 20 MEQ TAB PO SCH (21:44)
[2023-07-31 04:51] LABS: #Eosinphils 0.1 thou/uL (0.0-0.7); #Monocytes 0.5 thou/uL (0.11-0.59); #Neutrophils 2.2 thou/uL (1.40-6.50); %Basophils 0.4 % (0.0-1.0); %Lymphocytes 49.6 % (21.0-51.0); %Monocytes 8.6 % (0.0-10.0); %Neutrophils 39.2 % (42.0-75.0); Hematocrit 38.3 % (42.0-52.0); Hemoglobin 13.5 g/dL (14.0-18.0); Mean Corpuscular HGB CONC 35.2 g/dL (32.0-36.0); Mean Corpuscular Hemoglobin 25.4 pg (27.0-31.0); Mean Platelet Volume 8.9 fL (7.4-10.4); Platelet Count 272 10x3/uL (130-400); Red Blood Cell (RBC) Count 5.32 mill/uL (4.70-6.10); White Blood Cell (WBC) Count 5.6 10x3/uL (4.8-10.8)
[2023-07-31 05:04] LABS: Anion Gap 14 mmol/L (10-20); BUN (Urea Nitrogen) 8 mg/dL (8.9-20.6); Calc. Creatinine Clearance 160 mL/min (70-130); Calcium 8.6 mg/dL (7.8-10.44); Carbon Dioxide 20 mmol/L (22-29); Chloride 104 mmol/L (98-107); Estimated GFR 124; Glucose 303 mg/dL (70-105); Potassium 3.5 mmol/L (3.5-5.1); Sodium 134 mmol/L (136-145)
[2023-07-31 05:56] LABS: CellaVision Operator ID lab.abc; Platelet Adequacy Comment Platelets Normal; RBC Morphology Within Normal Limits
[2023-07-31] MEDS: Insulin Glargine 30 UNITS/0.3 ML VIAL SC SCH (09:03)
[2023-07-31 12:25] VITALS: BP 137/92; TEMP 98.7
== END 2023-07-31 13:30 | disposition home or self-care (01) | DRG 638 ==
LOC: ERS 22:41 → IMCU/EMU 07-23 04:35 → 2SW 07-24 22:26
PROVIDERS: ADMIT Student in an Organized Health Care Education/Training Program; ATTEND Student in an Organized Health Care Education/Training Program
PROC: 0DB68ZX Excision of Stomach, Via Natural or Artificial Opening Endoscopic, Diagnostic (ICD-10-PCS; principal; 2023-07-30)
DX: E10.10 Type 1 diabetes mellitus with ketoacidosis without coma (principal); K22.10 Ulcer of esophagus without bleeding; N17.9 Acute kidney failure, unspecified; I10 Essential (primary) hypertension; E10.40 Type 1 diabetes mellitus with diabetic neuropathy, unspecified; E80.6 Other disorders of bilirubin metabolism; E86.0 Dehydration; E87.6 Hypokalemia; F12.10 Cannabis abuse, uncomplicated; R00.0 Tachycardia, unspecified; Z79.4 Long term (current) use of insulin; R11.2 Nausea with vomiting, unspecified; E10.9 Type 1 diabetes mellitus without complications; D36.9 Benign neoplasm, unspecified site
CPT/HCPCS: 36415; 36416; 36600; 71045; 74018; 74177; 76705; 80048; 80053; 80076; 80306; 80307; 81001; 82010; 82805; 83605; 83690; 83735; 83880; 83930; 85025; 93005; 96361; 96365; 96374; 96375; 96376; C9113; J1630; J1790; J1815; J2060; J2405; J2550; J2704; J2765; J3010; J3475; J3480; J7120; Q0167

== ENCOUNTER 2023-10-10 13:53 | Outpatient (CLI) | payer OTHER, MEDICAID | END 2023-10-10 13:54 | disposition home or self-care (01) | LOC: DTY/OP 13:53 | PROVIDERS: ATTEND Student in an Organized Health Care Education/Training Program | DX: E11.9 Type 2 diabetes mellitus without complications (principal) | CPT/HCPCS: 97802 ==

== ENCOUNTER 2023-12-10 10:15 | Inpatient (IN) | payer MEDICAID, OTHER ==
[2023-12-10] MEDS ORDERED: Ondansetron PF 4 MG/2 ML Vial ONE (10:54)
[2023-12-10] MEDS ORDERED: Pantoprazole 40 MG VIAL ONE (10:54)
[2023-12-10 11:20] LABS: #Basophils Less than 0.03 10x3/uL (0.0-0.2); #Eosinphils Less than 0.03 10x3/uL (0.0-0.7); %Basophils 0.3 % (0.0-1.0); %Lymphocytes 21.2 % (21.0-51.0); %Neutrophils 70.2 % (42.0-75.0); Hematocrit 48.2 % (42.0-52.0); Hemoglobin 16.3 g/dL (14.0-18.0); Mean Corpuscular HGB CONC 33.8 g/dL (32.0-36.0); Mean Corpuscular Hemoglobin 25.3 pg (27.0-31.0); Mean Platelet Volume 9.3 fL (7.4-10.4); Platelet Count 277 10x3/uL (130-400); RBC Distribution Width 12.8 % (11.5-14.5); Red Blood Cell (RBC) Count 6.43 mill/uL (4.70-6.10)
[2023-12-10 11:24] LABS: Actual Bicarbonate (HCO3v) 29.6 mEq/L (22-28); Base Excess 4.9 mEq/L (-2.0 to +3.0); Calcium, Ionized (venous) 1.06 mmol/L (1.16-1.32); Chloride (VBG) 97 mmol/L (98-106); Hematocrit-VBG 51 % (42.0-52.0); Hemoglobin (Hb) 17.4 g/dL (13.2-17.3); Potassium (VBG) 4.01 mmol/L (3.70-5.30); Sodium 143 mmol/L (133-146)
[2023-12-10 12:19] LABS: Phosphorus 3.7 mg/dL (2.3-4.7)
[2023-12-10 12:23] LABS: ALT (SGPT) 21 U/L (8-55); AST (SGOT) 20 U/L (5-34); Albumin 4.2 g/dL (3.5-5.0); Alkaline Phosphatase 111 U/L (40-110); Anion Gap 20 mmol/L (10-20); BUN (Urea Nitrogen) 19 mg/dL (8.9-20.6); CK (CPK) 412 U/L (30-200); Calc. Creatinine Clearance 0 mL/min (70-130); Calcium 9.6 mg/dL (7.8-10.44); Carbon Dioxide 25 mmol/L (22-29); Chloride 100 mmol/L (98-107); Estimated GFR 77; Globulin 3.7 g/dL (2.4-3.5); Glucose 203 mg/dL (70-105); Lipase 10 U/L (8-78); Magnesium 2.4 mg/dL (1.6-2.6); Potassium 3.9 mmol/L (3.5-5.1); Protein, Total 7.9 g/dL (6.0-8.3); Sodium 141 mmol/L (136-145)
[2023-12-10] MEDS ORDERED: Metoclopramide HCl 10 MG (2 mL) VIAL ONE (12:47)
[2023-12-10] MEDS ORDERED: diphenhydrAMINE 50 MG/ML VIAL ONE (12:47)
[2023-12-10 16:09] LABS: Bacteria/HPF None Seen HPF (None Seen); Bilirubin Negative (Negative); Blood, Urine Negative (Negative); CAUTI Indications for Culture Pelvic or flank pain; Clarity Clear (Clear); Glucose, Urine (Dipstick) Greater than 1000 mg/dL (Negative); Ketone, Urine 150 mg/dL (Negative); Leukocyte Negative Leu/uL (Negative); Nitrite Negative (Negative); Protein, Urine (Dipstick) 20 mg/dL (Neg-Trace); RBC/HPF None Seen HPF (0-3); Specific Gravity, Urine 1.016 (1.002-1.036); Squamous Epithelial None Seen HPF (0-3); Urobilinogen Normal mg/dL (Less than 2); pH, Urine 6.5 (5.0-9.0)
[2023-12-10 16:12] LABS: Urine Culture Reflex No No
[2023-12-10 16:18] LABS: Amphetamine Not Detected (NotDetected); Barbiturates Screen Not Detected (NotDetected); Benzodiazepine Screen Not Detected (NotDetected); Cocaine Metabolite Screen Not Detected (NotDetected); Methadone Not Detected (NotDetected); Methamphetamine Not Detected (NotDetected); Opiate Screen Not Detected (NotDetected); Oxycodone Screen Not Detected (NotDetected); Phencyclidine (PCP) Not Detected (NotDetected); THC/Cannabinoid Screen Detected (NotDetected); Tricyclic Screen Not Detected (NotDetected)
[2023-12-10] MEDS ORDERED: Bisacodyl 5 MG TAB PO PRN (16:23)
[2023-12-10] MEDS ORDERED: Glucagon 1 MG/ML KIT IM PRN (16:28)
[2023-12-10] MEDS ORDERED: HumaLOG 300 UNITS/3 ML VIAL SC PRN (16:28)
[2023-12-10] MEDS ORDERED: Dextrose 50% Abboject 50 ML SYRINGE SLOW IVP PRN (16:28)
[2023-12-10] MEDS ORDERED: Dextrose 5% in Water 1,000 ML IV PRN (16:28)
[2023-12-10] MEDS: Labetalol HCl 100 MG/20 ML VIAL SLOW IVP SCH (16:52)
[2023-12-10] MEDS: Ondansetron PF 4 MG/2 ML Vial IVP SCH (17:02)
[2023-12-10] MEDS: Lactated Ringer's 1,000 ML IV SCH (17:03)
[2023-12-10 18:55] VITALS: BMI 26.4
[2023-12-10] MEDS: Gabapentin 300 MG CAP PO SCH (22:15)
[2023-12-10] MEDS: Insulin Glargine 30 UNITS/0.3 ML VIAL SC SCH (22:15)
[2023-12-11 04:31] LABS: #Basophils Less than 0.03 10x3/uL (0.0-0.2); #Eosinphils Less than 0.03 10x3/uL (0.0-0.7); %Basophils 0.2 % (0.0-1.0); %Eosinophils 0.1 % (0.0-10.0); %Lymphocytes 27.2 % (21.0-51.0); %Monocytes 7.4 % (0.0-10.0); %Neutrophils 64.9 % (42.0-75.0); Hematocrit 41.5 % (42.0-52.0); Hemoglobin 14.3 g/dL (14.0-18.0); Mean Corpuscular HGB CONC 34.5 g/dL (32.0-36.0); Mean Corpuscular Hemoglobin 25.4 pg (27.0-31.0); Mean Corpuscular Volume 73.8 fL (78.0-98.0); Mean Platelet Volume 9.4 fL (7.4-10.4); Platelet Count 258 10x3/uL (130-400); RBC Distribution Width 12.4 % (11.5-14.5); Red Blood Cell (RBC) Count 5.62 mill/uL (4.70-6.10)
[2023-12-11] MEDS: Promethazine HCl 12.5 MG in Sodium Chloride 0.9% 50 ML IVPB PRN (04:51)
[2023-12-11 05:04] LABS: ALT (SGPT) 15 U/L (8-55); AST (SGOT) 15 U/L (5-34); Albumin 3.5 g/dL (3.5-5.0); Alkaline Phosphatase 93 U/L (40-110); Anion Gap 14 mmol/L (10-20); BUN (Urea Nitrogen) 14 mg/dL (8.9-20.6); Bilirubin, Total 0.8 mg/dL (0.2-1.2); Calc. Creatinine Clearance 119 mL/min (70-130); Calcium 8.8 mg/dL (7.8-10.44); Carbon Dioxide 24 mmol/L (22-29); Chloride 107 mmol/L (98-107); Estimated GFR 94; Globulin 3.1 g/dL (2.4-3.5); Glucose 195 mg/dL (70-105); Potassium 3.9 mmol/L (3.5-5.1); Protein, Total 6.6 g/dL (6.0-8.3); Sodium 141 mmol/L (136-145)
[2023-12-11] MEDS: Losartan 25 MG TAB PO SCH (09:21)
[2023-12-11] MEDS: Capsaicin 0.025% Cream 60 gm Tube TOP SCH ×2 (10:51→16:00)
[2023-12-11] MEDS: Insulin Lispro 100 UNIT/ML 10 ML VIAL SC SCH (11:20)
[2023-12-11] MEDS: Insulin Lispro 100 UNIT/ML 10 ML VIAL SC PRN (11:34)
[2023-12-11] MEDS: Labetalol HCl 100 MG/20 ML VIAL SLOW IVP PRN (16:09)
[2023-12-11] MEDS ORDERED: hydrALAZINE 20 MG/ML VIAL SLOW IVP PRN (17:53)
[2023-12-12 04:51] LABS: #Basophils 0.03 10x3/uL (0.0-0.2); #Eosinphils Less than 0.03 10x3/uL (0.0-0.7); %Basophils 0.5 % (0.0-1.0); %Eosinophils 0.3 % (0.0-10.0); %Lymphocytes 43.7 % (21.0-51.0); %Neutrophils 47.2 % (42.0-75.0); Hematocrit 42.5 % (42.0-52.0); Hemoglobin 14.4 g/dL (14.0-18.0); Mean Corpuscular HGB CONC 33.9 g/dL (32.0-36.0); Mean Corpuscular Volume 73.8 fL (78.0-98.0); Mean Platelet Volume 8.9 fL (7.4-10.4); Platelet Count 239 10x3/uL (130-400); RBC Distribution Width 12.2 % (11.5-14.5); Red Blood Cell (RBC) Count 5.76 mill/uL (4.70-6.10)
[2023-12-12 05:09] LABS: ALT (SGPT) 13 U/L (8-55); AST (SGOT) 14 U/L (5-34); Albumin 3.5 g/dL (3.5-5.0); Alkaline Phosphatase 91 U/L (40-110); Anion Gap 11 mmol/L (10-20); BUN (Urea Nitrogen) 8 mg/dL (8.9-20.6); Bilirubin, Total 0.9 mg/dL (0.2-1.2); Calc. Creatinine Clearance 142 mL/min (70-130); Carbon Dioxide 24 mmol/L (22-29); Chloride 107 mmol/L (98-107); Estimated GFR 115; Globulin 2.9 g/dL (2.4-3.5); Glucose 124 mg/dL (70-105); Potassium 3.3 mmol/L (3.5-5.1); Protein, Total 6.4 g/dL (6.0-8.3); Sodium 139 mmol/L (136-145)
[2023-12-12] MEDS: Potassium Chloride 20 MEQ in Premix 1 BAG IVPB SCH (06:27)
[2023-12-12] MEDS: Acetaminophen 325 MG TAB PO PRN (09:29)
[2023-12-12] MEDS ORDERED: Magnesium 2 GM/50 ML(in water) 2 GM in Premix 1 BAG IVPB SCH (09:45)
[2023-12-12] MEDS: Prochlorperazine Edisylate 10 MG in Sodium Chloride 0.9% 50 ML IVPB SCH (10:57)
[2023-12-12] MEDS: diphenhydrAMINE 50 MG/ML VIAL IVP SCH (10:58)
[2023-12-12] MEDS: Magnesium Sulfate 1 GM, Admixture Fee 1 EACH in Sodium Chloride 0.9% 100 ML IVPB SCH (11:33)
[2023-12-12] MEDS ORDERED: PROPOFOL 60 ML ONE (12:37)
[2023-12-12] MEDS ORDERED: Lidocaine 2% PF 5 ML VIAL ONE (12:37)
[2023-12-12] MEDS: Labetalol HCl 100 MG/20 ML VIAL SLOW IVP PRN (14:29)
[2023-12-12] MEDS: Magnesium 2 GM/50 ML(in water) 1 GM in Premix 1 BAG IVPB SCH (14:30)
[2023-12-12] MEDS: Carvedilol 6.25 MG TAB PO SCH (16:40)
[2023-12-13 04:18] LABS: ALT (SGPT) 15 U/L (8-55); AST (SGOT) 16 U/L (5-34); Albumin 3.7 g/dL (3.5-5.0); Alkaline Phosphatase 97 U/L (40-110); Anion Gap 13 mmol/L (10-20); BUN (Urea Nitrogen) 8 mg/dL (8.9-20.6); Calc. Creatinine Clearance 126 mL/min (70-130); Carbon Dioxide 25 mmol/L (22-29); Chloride 105 mmol/L (98-107); Estimated GFR 100; Globulin 3.4 g/dL (2.4-3.5); Glucose 100 mg/dL (70-105); Potassium 3.1 mmol/L (3.5-5.1); Protein, Total 7.1 g/dL (6.0-8.3); Sodium 140 mmol/L (136-145)
[2023-12-13 04:21] LABS: #Basophils 0.04 10x3/uL (0.0-0.2); %Basophils 0.5 % (0.0-1.0); %Lymphocytes 57.1 % (21.0-51.0); %Neutrophils 33.3 % (42.0-75.0); Hematocrit 45.9 % (42.0-52.0); Hemoglobin 15.6 g/dL (14.0-18.0); Mean Corpuscular Hemoglobin 25.2 pg (27.0-31.0); Mean Corpuscular Volume 74.2 fL (78.0-98.0); Mean Platelet Volume 8.5 fL (7.4-10.4); Platelet Count 250 10x3/uL (130-400); RBC Distribution Width 12.4 % (11.5-14.5); Red Blood Cell (RBC) Count 6.19 mill/uL (4.70-6.10)
[2023-12-13] MEDS: Potassium Chloride 20 MEQ in Premix 1 BAG IVPB SCH ×2 (07:31→12:01)
[2023-12-13] MEDS: Losartan 25 MG TAB PO SCH (10:16)
[2023-12-13] MEDS: Metoclopramide HCl 10 MG (2 mL) VIAL IVP SCH (12:01)
[2023-12-13] MEDS ORDERED: Ondansetron PF 4 MG/2 ML Vial IVP PRN (17:17)
[2023-12-14 04:45] LABS: #Basophils 0.04 10x3/uL (0.0-0.2); %Basophils 0.6 % (0.0-1.0); %Eosinophils 1.2 % (0.0-10.0); %Lymphocytes 41.7 % (21.0-51.0); %Monocytes 8.7 % (0.0-10.0); %Neutrophils 47.5 % (42.0-75.0); Hematocrit 45.1 % (42.0-52.0); Hemoglobin 15.5 g/dL (14.0-18.0); Mean Corpuscular HGB CONC 34.4 g/dL (32.0-36.0); Mean Corpuscular Hemoglobin 25.1 pg (27.0-31.0); Platelet Count 264 10x3/uL (130-400); RBC Distribution Width 12.3 % (11.5-14.5); Red Blood Cell (RBC) Count 6.18 mill/uL (4.70-6.10)
[2023-12-14 05:06] LABS: ALT (SGPT) 14 U/L (8-55); AST (SGOT) 13 U/L (5-34); Albumin 3.7 g/dL (3.5-5.0); Alkaline Phosphatase 96 U/L (40-110); Anion Gap 13 mmol/L (10-20); BUN (Urea Nitrogen) 8 mg/dL (8.9-20.6); Bilirubin, Total 0.9 mg/dL (0.2-1.2); Calc. Creatinine Clearance 141 mL/min (70-130); Calcium 9.2 mg/dL (7.8-10.44); Carbon Dioxide 23 mmol/L (22-29); Chloride 101 mmol/L (98-107); Estimated GFR 114; Globulin 3.4 g/dL (2.4-3.5); Glucose 175 mg/dL (70-105); Potassium 3.4 mmol/L (3.5-5.1); Protein, Total 7.1 g/dL (6.0-8.3); Sodium 134 mmol/L (136-145)
[2023-12-14] MEDS: Pantoprazole DR 40 MG TAB PO SCH (06:42)
[2023-12-14] MEDS: Carvedilol 25 MG TAB PO SCH (09:29)
[2023-12-14] MEDS: Potassium Chloride 20 MEQ TAB PO SCH (09:30)
[2023-12-14 13:13] VITALS: BP 139/101; TEMP 98.6
[2023-12-15] MEDS ORDERED: Pantoprazole DR 40 MG TAB PO SCH (09:00)
== END 2023-12-14 14:31 | disposition home or self-care (01) | DRG 392 ==
LOC: ERS 10:15 → T4-A 14:53 → 2SW 18:42 → OBSVTOIN 12-11 14:58
PROVIDERS: ADMIT Student in an Organized Health Care Education/Training Program; ATTEND Student in an Organized Health Care Education/Training Program
PROC: 0DB68ZX Excision of Stomach, Via Natural or Artificial Opening Endoscopic, Diagnostic (ICD-10-PCS; principal; 2023-12-12)
DX: R11.2 Nausea with vomiting, unspecified (principal); E87.3 Alkalosis; K22.10 Ulcer of esophagus without bleeding; I47.10 Supraventricular tachycardia, unspecified; N17.9 Acute kidney failure, unspecified; E87.6 Hypokalemia; E10.40 Type 1 diabetes mellitus with diabetic neuropathy, unspecified; I10 Essential (primary) hypertension; G43.909 Migraine, unspecified, not intractable, without status migrainosus; E86.0 Dehydration; F12.10 Cannabis abuse, uncomplicated; E10.65 Type 1 diabetes mellitus with hyperglycemia; Z79.4 Long term (current) use of insulin; Z79.899 Other long term (current) drug therapy; Z71.51 Drug abuse counseling and surveillance of drug abuser
CPT/HCPCS: 36415; 36416; 80053; 80306; 81001; 82010; 82550; 82805; 83036; 83690; 83735; 84100; 85025; 88305; 93005; 93010; 96361; 96365; 96374; 96375; 96376; C9113; G0378; J0780; J1200; J1815; J2001; J2405; J2550; J2704; J2765; J3475; J3480; J7120

== ENCOUNTER 2025-01-08 20:03 | Emergency (ER) | payer MEDICAID, OTHER, SELFPAY ==
[2025-01-08 20:44] LABS: Bacteria/HPF None Seen HPF (None Seen); CAUTI Indications for Culture Dysuria,urgency,freq; Glucose, Urine (Dipstick) 70 mg/dL (Negative); Leukocyte 500 Leu/uL (Negative); Protein, Urine (Dipstick) 20 mg/dL (Neg-Trace); Specific Gravity, Urine 1.017 (1.002-1.036); WBC/HPF Greater than 50 HPF (0-3)
[2025-01-08 20:46] LABS: Urine Culture Reflex Yes Yes
[2025-01-08 21:27] LABS: #Basophils 0.03 10x3/uL (0.0-0.2); #Eosinophils 0.08 10x3/uL (0.0-0.7); #Monocytes 0.66 10x3/uL (0.11-0.59); #Neutrophils 4.80 10x3/uL (1.40-6.50); %Basophils 0.4 % (0.0-1.0); %Eosinophils 1.0 % (0.0-10.0); %Lymphocytes 31.1 % (21.0-51.0); %Monocytes 8.1 % (0.0-10.0); %Neutrophils 59.2 % (42.0-75.0); Hematocrit 42.7 % (42.0-52.0); Hemoglobin 14.1 g/dL (14.0-18.0); Mean Corpuscular Hemoglobin 24.3 pg (27.0-31.0); Mean Corpuscular Volume 73.5 fL (78.0-98.0); Platelet Count 234 10x3/uL (130-400); Red Blood Cell (RBC) Count 5.81 mill/uL (4.70-6.10); White Blood Cell (WBC) Count 8.11 10x3/uL (4.8-10.8)
[2025-01-08 21:33] LABS: ALT (SGPT) 44 U/L (Less than 45); AST (SGOT) 77 U/L (11-34); Albumin 4.3 g/dL (3.1-4.5); Alkaline Phosphatase 125 U/L (40-110); Anion Gap 14 mmol/L (10-20); BUN (Urea Nitrogen) 9 mg/dL (8.9-20.6); Bilirubin, Total 0.4 mg/dL (0.3-1.2); Calc. Creatinine Clearance 0 mL/min (70-130); Calcium 9.2 mg/dL (7.8-10.44); Carbon Dioxide 23 mmol/L (22-29); Chloride 107 mmol/L (98-107); Globulin 3.4 g/dL (2.4-3.5); Glucose 167 mg/dL (70-105); Potassium 4.3 mmol/L (3.5-5.1); Sodium 140 mmol/L (136-145)
[2025-01-08] MEDS ORDERED: cefTRIAXone (ROCEPHIN) 500 MG VIAL ONE (21:40)
[2025-01-08 23:44] LABS: Platelet Adequacy Comment Platelets Normal; RBC Morphology Within Normal Limits
[2025-01-10 13:44] LABS: Chlam.trachomatis by PCR,Urine Not Detected (NotDetected); GC N.gonorrhoeae PCR,UrineVOID Not Detected (NotDetected)
== END 2025-01-08 22:07 | disposition home or self-care (01) ==
LOC: ERS 20:03
DX: N34.1 Nonspecific urethritis (principal); I10 Essential (primary) hypertension; E10.9 Type 1 diabetes mellitus without complications
CPT/HCPCS: 36415; 36416; 80053; 81001; 85025; 87086; 87491; 87591; 96372; 99283; J0696